=== PATIENT | female | born 1970 | race Hispanic/Latino ===

== ENCOUNTER 2022-02-24 17:52 | Emergency (ER) | payer OTHER ==
[~2022-02-24] VITALS: Ht 162.6 cm; Wt 78.9 kg
[2022-02-24] MEDS ORDERED: PANTOPRAZOLE SOD 40 MG TABEC PO ONE (18:45)
[2022-02-24] MEDS ORDERED: ONDANSETRON HCL INJ 2MG/ML 2ML 2 MG/ML VIAL IV PRN (18:45)
[2022-02-24 19:01] LABS: BASOPHILS % 0.4 % (0.0-1.0); EOSINOPHILS # (AUTO) 0.3 (0.0-0.4); EOSINOPHILS % 3.4 % (0.0-6.0); HEMATOCRIT 45.4 % (34.2-44.1); HEMOGLOBIN 14.5 g/dL (12.0-16.0); LYMPHOCYTES # (AUTO) 2.9 (1.0-3.2); LYMPHOCYTES % 33.8 % (18.0-39.1); MEAN CORPUSCULAR HGB CONC 31.9 g/dL (31-35); MEAN CORPUSCULAR VOLUME 90.8 fL (81-99); MONOCYTES # (AUTO) 0.7 (0.2-0.8); MONOCYTES % 8.5 % (4.4-11.3); NEUTROPHILS # (AUTO) 4.6 (2.1-6.9); NEUTROPHILS % 53.7 % (38.7-80.0); PLATELET COUNT 226 x10e3/uL (140-360); RED CELL DISTRIBUTION WIDTH 13.8 % (11.7-14.4)
[2022-02-24 19:15] LABS: ALBUMIN 3.6 g/dL (3.5-5.0); ALBUMIN/GLOBULIN RATIO 0.9 (0.8-2.0); ANION GAP 15.8 mmol/L (8-16); CALCIUM 9.1 mg/dL (8.4-10.2); CREATININE, SERUM 0.78 mg/dL (0.57-1.11); LIPASE 35 U/L (8-78); POTASSIUM 3.8 mmol/L (3.5-5.1)
[2022-02-24] MEDS ORDERED: DONNATAL/LIDOCAINE/MAALOX 30 ML SUSP PO SCH (19:25)
[2022-02-24] MEDS ORDERED: LIDOCAINE VISC 2% SOLN 15 ML UDC ONE (19:34)
[2022-02-24] MEDS ORDERED: BELLADONNA ALK/PHENOBARBITAL 5 ML UDC ONE (19:35)
[2022-02-24] MEDS ORDERED: MAGNESIUM/ALUMINUM/SIMETHICONE 30 ML UDC ONE (19:35)
[2022-02-24] MEDS ORDERED: PANTOPRAZOLE SOD 40 MG TABEC ONE (19:38)
[2022-02-24] MEDS ORDERED: ONDANSETRON ODT4 MG PO (19:48)
[2022-02-24] MEDS ORDERED: DICYCLOMINE HCL20 MG PO (19:48)
[2022-02-24] MEDS ORDERED: IOPAMIDOL 370 MG/ML 100 ML INFUS..BTL INJ ONE (19:54)
== END 2022-02-24 21:05 | disposition home or self-care (01) ==
LOC: ER 18:17
DX: R10.13 Epigastric pain (principal); K29.70 Gastritis, unspecified, without bleeding; R11.0 Nausea; R14.0 Abdominal distension (gaseous); R94.31 Abnormal electrocardiogram [ECG] [EKG]
CPT/HCPCS: 36415; 74177; 80053; 83690; 84484; 85025; 93005; 99284; J2405; Q9967; S0164